=== PATIENT | male | born 1950 ===

== ENCOUNTER 2018-11-08 01:22 | Emergency (ER) | payer MEDICARE, MEDICAID ==
[2018-11-08 01:22] VITALS: BMI 19.4
[2018-11-08 01:34] VITALS: RESP 16; O2SAT 98
--- NOTE | 2018-11-08 02:00 | ED PDOC ---
HPI: Abdomen Time Seen by Provider: 11/08/18 01:41 Chief Complaint (Nursing): Alcohol Ingestion Chief Complaint (Provider): Alcohol Ingestion History Per: Patient History/Exam Limitations: no limitations Additional Complaint(s): 68 y/o male who is well known to provider and this ED presents for abdominal pain. Patient has a lengthy history of alcoholism and bed seeking behavior. Patient was seen 24 hours ago at this location and claimed he had head injury. Patient had a head CT done at that time which was normal. Upon return to the ED tonight patient stated to triage he has abdominal pain. However patient denies abdominal pain to provider and states that he fell and hit his head. Patient is obviously intoxicated and behavior is consistent with bed-seeking behavior. Past Medical History Reviewed: Historical Data, Nursing Documentation, Vital Signs Vital Signs: Last Vital Signs Temp 97.6 F 11/08/18 01:29 Pulse 68 11/08/18 01:29 Resp 16 11/08/18 01:29 BP 180/83 H 11/08/18 01:29 Pulse Ox 98 11/08/18 01:29 Primary Care Provider: FAMILY PROVIDER,NO - Medical History PMH: Back Problems, HTN, Hyperlipidemia, Pancreatitis, Pneumonia, Seizures Denies: Hepatitis (C. patient denies on 06/14/2018), HIV (patient denies on 06/14/2018), Chronic Kidney Disease, Chronic Pain ((back0 patient denies on 06/14/2018) - Family History Family History: States: Unknown Family Hx - Immunization History Hx Tetanus Toxoid Vaccination: No Hx Influenza Vaccination: No Hx Pneumococcal Vaccination: No - Home Medications Home Medications: Ambulatory Orders Medication Instructions Recorded Levofloxacin [Levaquin] 750 mg PO DAILY 7 Days #7 tablet 07/28/18 Ibuprofen [Motrin] 400 mg PO Q6H PRN #30 tab 10/14/18 - Allergies Allergies/Adverse Reactions: Allergies Allergy/AdvReac Type Severity Reaction Status Date / Time No Known Allergies Allergy Verified 11/06/18 05:55 Review of Systems ROS Statement: Except As Marked, All Systems Reviewed And Found Negative Gastrointestinal: Positive for: Abdominal Pain Physical Exam - Reviewed Nursing Documentation Reviewed: Yes Vital Signs Reviewed: Yes - Physical Exam Appears: Positive for: Well, Non-toxic (intoxicated), No Acute Distress Head Exam: Positive for: ATRAUMATIC, NORMAL INSPECTION, NORMOCEPHALIC Skin: Positive for: Normal Color, Warm, DRY Eye Exam: Positive for: EOMI, Normal appearance, PERRL ENT: Positive for: Normal ENT Inspection Neck: Positive for: Normal, Painless ROM Cardiovascular/Chest: Positive for: Regular Rate, Rhythm. Negative for: Murmur Respiratory: Positive for: Normal Breath Sounds. Negative for: Respiratory Distress Gastrointestinal/Abdominal: Positive for: Normal Exam, Soft. Negative for: Tenderness Back: Positive for: Normal Inspection Extremity: Positive for: Normal ROM. Negative for: Pedal Edema, Deformity Neurological/Psych: Positive for: Awake, Alert, Normal Tone, Oriented. Negative for: Motor/Sensory Deficits - ECG O2 Sat by Pulse Oximetry: 98 (RA) Pulse Ox Interpretation: Normal Medical Decision Making Medical Decision Making: Time: 01:42 Impression: malingering disorder, alcoholism Initial Plan: * Labs * Pepcid Scribe Attestation: Documented by Maxi Rubio, acting as a scribe for Eliud Rockwell MD. Provider Scribe Attestation: All medical record entries made by the Scribe were at my direction and personally dictated by me. I have reviewed the chart and agree that the record accurately reflects my personal performance of the history, physical exam, medical decision making, and the department course for this patient. I have also personally directed, reviewed, and agree with the discharge instructions and disposition. Disposition - Disposition
[2018-11-08 06:26] VITALS: BP 154/89; PULSE 70; TEMP 97.7
--- NOTE | 2018-11-08 20:26 | ED PDOC ---
HPI: Psych/Substance Abuse Time Seen by Provider: 11/08/18 01:41 Chief Complaint (Nursing): Alcohol Ingestion Chief Complaint (Provider): Alcohol Ingestion ED Caveat: Intoxicated History Per: EMS History/Exam Limitations: intoxication Current Symptoms Are (Timing): Still Present Modifying Factor(s): Alcohol Past Medical History Reviewed: Historical Data, Nursing Documentation, Vital Signs Vital Signs: Last Vital Signs Temp 97.7 F 11/08/18 06:10 Pulse 70 11/08/18 06:10 Resp 16 11/08/18 06:10 BP 154/89 H 11/08/18 06:10 Pulse Ox 98 11/08/18 06:10 Primary Care Provider: FAMILY PROVIDER,NO - Medical History PMH: Back Problems, HTN, Hyperlipidemia, Pancreatitis, Pneumonia, Seizures Denies: Hepatitis (C. patient denies on 06/14/2018), HIV (patient denies on 06/14/2018), Chronic Kidney Disease, Chronic Pain ((back0 patient denies on 06/14/2018) - Family History Family History: States: Unknown Family Hx - Immunization History Hx Tetanus Toxoid Vaccination: No Hx Influenza Vaccination: No Hx Pneumococcal Vaccination: No - Home Medications Home Medications: Ambulatory Orders Medication Instructions Recorded Levofloxacin [Levaquin] 750 mg PO DAILY 7 Days #7 tablet 07/28/18 Ibuprofen [Motrin] 400 mg PO Q6H PRN #30 tab 10/14/18 - Allergies Allergies/Adverse Reactions: Allergies Allergy/AdvReac Type Severity Reaction Status Date / Time No Known Allergies Allergy Verified 11/06/18 05:55 - ECG O2 Sat by Pulse Oximetry: 98 Disposition - Clinical Impression Clinical Impression: Alcohol abuse with uncomplicated intoxication - Disposition Condition: STABLE Instructions: Alcohol Use - When Is Drinking a Problem? Forms: [employer] (Portuguese) Print Language: HUNGARIAN
--- NOTE | 2018-11-08 20:31 | ED PDOC ---
HPI: Abdomen Time Seen by Provider: 11/08/18 01:41 Chief Complaint (Nursing): Alcohol Ingestion Chief Complaint (Provider): Alcohol Ingestion History Per: Patient History/Exam Limitations: no limitations Additional Complaint(s): 68 y/o male who is well known to provider and this ED presents for abdominal pain. Patient has a lengthy history of alcoholism and bed seeking behavior. Patient was seen 24 hours ago at this location and claimed he had head injury. Patient had a head CT done at that time which was normal. Upon return to the ED tonight patient stated to triage he has abdominal pain. However patient denies abdominal pain to provider and states that he fell and hit his head. Patient is obviously intoxicated and behavior is consistent with bed-seeking behavior. Past Medical History Reviewed: Historical Data, Nursing Documentation, Vital Signs Vital Signs: Last Vital Signs Temp 97.7 F 11/08/18 06:10 Pulse 70 11/08/18 06:10 Resp 16 11/08/18 06:10 BP 154/89 H 11/08/18 06:10 Pulse Ox 98 11/08/18 06:10 Primary Care Provider: FAMILY PROVIDER,NO - Medical History PMH: Back Problems, HTN, Hyperlipidemia, Pancreatitis, Pneumonia, Seizures Denies: Hepatitis (C. patient denies on 06/14/2018), HIV (patient denies on 06/14/2018), Chronic Kidney Disease, Chronic Pain ((back0 patient denies on 06/14/2018) - Family History Family History: States: Unknown Family Hx - Social History Alcohol: > 2 Drinks/Day - Immunization History Hx Tetanus Toxoid Vaccination: No Hx Influenza Vaccination: No Hx Pneumococcal Vaccination: No - Home Medications Home Medications: Ambulatory Orders Medication Instructions Recorded Levofloxacin [Levaquin] 750 mg PO DAILY 7 Days #7 tablet 07/28/18 Ibuprofen [Motrin] 400 mg PO Q6H PRN #30 tab 10/14/18 - Allergies Allergies/Adverse Reactions: Allergies Allergy/AdvReac Type Severity Reaction Status Date / Time No Known Allergies Allergy Verified 11/06/18 05:55 Review of Systems ROS Statement: Except As Marked, All Systems Reviewed And Found Negative Gastrointestinal: Positive for: Abdominal Pain Physical Exam - Reviewed Nursing Documentation Reviewed: Yes Vital Signs Reviewed: Yes - Physical Exam Appears: Positive for: Non-toxic, No Acute Distress Head Exam: Positive for: ATRAUMATIC, NORMAL INSPECTION, NORMOCEPHALIC Skin: Positive for: Normal Color Eye Exam: Positive for: Normal appearance, EOMI, PERRL ENT: Positive for: Normal ENT Inspection Neck: Positive for: Normal Cardiovascular/Chest: Positive for: Regular Rate, Rhythm Respiratory: Positive for: Normal Breath Sounds. Negative for: Respiratory Distress Gastrointestinal/Abdominal: Positive for: Normal Exam, Soft. Negative for: Tenderness Extremity: Positive for: Normal ROM (upper/lower) Neurological/Psych: Positive for: Mood/Affect (intoxicated), Gait (unsteady), Other (slurred speech) - ECG O2 Sat by Pulse Oximetry: 98 (RA) Pulse Ox Interpretation: Normal Medical Decision Making Medical Decision Making: Time: 01:42 Impression: malingering disorder, alcoholism Initial Plan: 4AM Vss, resting comfortably 6AM Patient clinically sober for discharge DX Alcoholism Scribe Attestation: Documented by Maxi Rubio, acting as a scribe for Eliud Rockwell MD. Provider Scribe Attestation: All medical record entries made by the Scribe were at my direction and personally dictated by me. I have reviewed the chart and agree that the record accurately reflects my personal performance of the history, physical exam, m edical decision making, and the department course for this patient. I have also personally directed, reviewed, and agree with the discharge instructions and disposition. Disposition - Clinical Impression Clinical Impression: Alcohol abuse with uncomplicated intoxication - Disposition Disposition: Routine/Home Disposition Time: 06:00 Condition: STABLE Instructions: Alcohol Use - When Is Drinking a Problem? Forms: [employer] (Belarusian) Print Language: PALAUAN
== END 2018-11-08 06:10 | disposition home or self-care (01) ==
LOC: H.ER 01:22 → MERGE 01:22 → H.ER 06:10
DX: F10.220 Alcohol dependence with intoxication, uncomplicated (principal); I10 Essential (primary) hypertension; E78.5 Hyperlipidemia, unspecified

== ENCOUNTER 2018-11-08 15:53 | Emergency (ER) | payer MEDICAID, MEDICARE ==
[2018-11-08 16:00] VITALS: BP 114/56; PULSE 61; RESP 18; TEMP 98.7; O2SAT 96
[2018-11-08 17:26] LABS: BASO # 0.1 K/uL (0.0-0.2); BASO % 1.2 % (0.0-2.0); EOS # 0.1 K/uL (0.0-0.7); EOS % 1.8 % (0.0-4.0); HEMOGLOBIN 12.8 g/dL (12.0-18.0); LYMPH # 2.1 K/uL (1.0-4.3); LYMPH % 31.4 % (20.0-40.0); MEAN CELL VOLUME 92.2 fl (80.0-94.0); MEAN CORPUSCULAR HEMOGLOBIN 31.5 pg (27.0-31.0); MEAN CORPUSCULAR HGB CONC 34.2 g/dL (33.0-37.0); MONO # 0.5 K/uL (0.0-0.8); MONO % 7.2 % (0.0-10.0); NEUT # 3.9 K/uL (1.8-7.0); NEUT % 58.4 % (50.0-75.0); NRBC % 0.1 % (0.0-0.0); RBC 4.07 Mil/uL (4.40-5.90); RED CELL DISTRIBUTION WIDTH 13.6 % (11.5-14.5); WHITE BLOOD COUNT 6.7 K/uL (4.8-10.8)
[2018-11-08 17:42] LABS: ALB/GLOB RATIO 1.4 (1.0-2.1); ALBUMIN 4.8 g/dL (3.5-5.0); ALT/SGPT 28 U/L (21-72); AST/SGOT 70 U/L (17-59); BLOOD UREA NITROGEN 16 mg/dl (9-20); CALCIUM 8.7 mg/dL (8.4-10.2); GFR NON-AFRICAN AMERICAN > 60
--- NOTE | 2018-11-08 18:47 | ED PDOC ---
HPI: Psych/Substance Abuse Time Seen by Provider: 11/08/18 16:09 Chief Complaint (Nursing): Substance Abuse Chief Complaint (Provider): Intoxication ED Caveat: Intoxicated History Per: EMS History/Exam Limitations: intoxication Onset/Duration Of Symptoms: Unknown Current Symptoms Are (Timing): Still Present Modifying Factor(s): Alcohol Additional Complaint(s): 68 y/o male with an unknown PMHx brought in by EMS for alcohol intoxication. History from patient limited due to his intoxicated state. No reports of trauma noted. On arrival, patient was awake, alert and euphoric without any complaints PMD: no provider Past Medical History Reviewed: Historical Data, Nursing Documentation, Vital Signs Vital Signs: Last Vital Signs Temp 98.7 F 11/08/18 15:56 Pulse 61 11/08/18 15:56 Resp 18 11/08/18 15:56 BP 114/56 L 11/08/18 15:56 Pulse Ox 96 11/08/18 15:56 Primary Care Provider: FAMILY PROVIDER,NO - Medical History PMH: No Chronic Diseases - Surgical History Surgical History: No Surg Hx - Family History Family History: States: Unknown Family Hx - Social History Alcohol: > 2 Drinks/Day - Allergies Allergies/Adverse Reactions: Allergies Allergy/AdvReac Type Severity Reaction Status Date / Time No Known Allergies Allergy Verified 11/08/18 16:01 Review of Systems Review Of Systems: ROS cannot be obtained secondary to pt's inabilty to answer questions. Physical Exam - Reviewed Nursing Documentation Reviewed: Yes Vital Signs Reviewed: Yes - Physical Exam Appears: Positive for: No Acute Distress Head Exam: Positive for: ATRAUMATIC, NORMOCEPHALIC Skin: Positive for: Normal Color, Warm, Dry Eye Exam: Positive for: Normal appearance, EOMI, PERRL Neck: Positive for: Normal, Painless ROM Cardiovascular/Chest: Positive for: Regular Rate, Rhythm. Negative for: Murmur Respiratory: Positive for: Normal Breath Sounds. Negative for: Respiratory Distress Gastrointestinal/Abdominal: Positive for: Normal Exam, Soft. Negative for: Tenderness Extremity: Positive for: Normal ROM Neurological/Psych: Positive for: Awake, Alert, Gait (unsteady), Other (Poor insight, alcohol on breath, slurred speech. Patient was initially uncooperative but was able to be redirected.). Negative for: Motor/Sensory Deficits - Laboratory Results Result Diagrams: 11/08/18 17:21 11/08/18 17:21 Lab Results: Total Bilirubin 0.2 mg/dl (0.2-1.3) 11/08/18 17:21 AST 70 U/L (17-59) H 11/08/18 17:21 ALT 28 U/L (21-72) 11/08/18 17:21 Alkaline Phosphatase 87 U/L (38-126) 11/08/18 17:21 Total Protein 8.2 G/DL (6.3-8.2) 11/08/18 17:21 Albumin 4.8 g/dL (3.5-5.0) 11/08/18 17:21 Globulin 3.5 gm/dL (2.2-3.9) 11/08/18 17:21 Albumin/Globulin Ratio 1.4 (1.0-2.1) 11/08/18 17:21 - ECG O2 Sat by Pulse Oximetry: 96 (RA) Medical Decision Making Medical Decision Making: Time: 1618 Impression: Workup for alcohol intoxication Plan: -- EKG -- Alcohol Serum -- CMP -- Glucose, POC -- 1:1 Observation -- Glucose, Blood, POC -- Patient placed on 1:1 observation for potential wandering in the ER. -- Accucheck of 87. Time: 172 -- Quantitative alcohol level of 343. Time: 0 -- pt ambulating steady gait and tolerated full dinner, wants to go home. known alcohol abuse, at clinical baseline. Scribe Attestation: Documented by Crystal Arzate, acting as a scribe for Neftali Elena III, DO. Provider Scribe Attestation: All medical record entries made by the Scribe were at my direction and personally dictated by me. I have reviewed the chart and agree that the record accurately reflects my personal performance of the history, physical exam, medical decision making, and the department course for this patient. I have also personally directed, reviewed, and agree with the discharge instructions and disposition. Disposition - Clinical Impression Clinical Impression: Alcohol intoxication - Patient ED Disposition Is Patient to be Admitted: Transfer of Care - Disposition Disposition: Routine/Home Disposition Time: 20:09 Condition: FAIR Instructions: Alcohol Use - When Is Drinking a Problem? Forms: [employer] (Thai) Print Language: BHUTANESE Patient Signed Over To: Eliud Rockwell Handoff Comments: pending clinical sobriety, re-evaluation and final ER disposition. Patient to be placed on 1:1 observation until he presents ability to demonstrate self preservation.
--- NOTE | 2018-11-09 19:19 | CARD ---
APPROVED REPORT Date of service: 11/08/2018 EKG Measurement Heart [id number] <Conclusion> Normal sinus rhythm Moderate voltage criteria for LVH, may be normal variant Borderline ECG
== END 2018-11-08 21:47 | disposition home or self-care (01) ==
LOC: H.ER 15:53
DX: F10.129 Alcohol abuse with intoxication, unspecified (principal); Y90.8 Blood alcohol level of 240 mg/100 ml or more